=== PATIENT | male | born 1950 | race Caucasian/White ===

== ENCOUNTER 2017-06-27 12:03 | Day surgery (SDC) | payer OTHER, MEDICARE ==
[~2017-06-27 12:03] MED LIST: oxyCODONE HCL 10 MG SUSTAINED ACTING TABLET PO STA
[2017-06-27] MEDS ORDERED: oxyCODONE HCL 10 MG SUSTAINED ACTING TABLET ONE (12:28)
[2017-06-27] MEDS ORDERED: MIDAZOLAM HCL 2 MG/2 ML SINGLE DOSE VIAL ONE ×3 (13:15→14:19)
[2017-06-27] MEDS ORDERED: LIDOCAINE HCL 1%, 10 MG/ML (20ML VIAL) ONE (13:34)
[2017-06-27] MEDS ORDERED: BUPIVACAINE HCL/PF 0.5% (5MG/ML) 10 ML VIAL ONE (14:02)
--- NOTE | 2017-06-27 16:16 | HP ---
History & Physical Update - History History: No Change - Physical Physical: No Change - Assessment Assessment: No Change - Plan Plan: No Change
--- NOTE | 2017-06-27 16:17 | OP ---
Operative Note - Note: Operative Date: 06/27/17 Pre-Operative Diagnosis: Spinal stenosis with radiculopathy Operation: L4/5 bilateral laminectomy/discectomy Post-Operative Diagnosis: Same as Pre-op Surgeon: Aime Youssef [employer] Employee: David Mac Anesthesiologist/PSYCHODRAMATIST: Alli Troncoso Anesthesia: Spinal Specimens Removed: L4/5 disc Estimated Blood Loss (mls): 20 Fluid Volume Replaced (mls): 1,100 Operative Report Dictated: Yes
--- NOTE | 2017-06-27 16:18 | SURG ---
Surgery Tile Ditcher Note Tile Ditcher: David Mac PA-C Date of Service: 06/27/17 Diagnosis: Spinal stenosis with radiculopathy Procedure: L4/5 bilateral laminectomy/discectomy I was present for the entirety of the operative procedure. For further detail, please refer to operative report. Visit type - Case Type Case Type: Scheduled Admission - New patient This patient is new to me today: Yes Date on this admission: 06/27/17
[2017-06-27] MEDS ORDERED: ONDANSETRON 4 MG/2 ML VIAL IVPUSH PRN (16:21)
[2017-06-27] MEDS ORDERED: oxyCODONE HCL 5 MG TABLET PO PRN ×2 (16:21)
[2017-06-27] MEDS ORDERED: PROMETHAZINE HCL 25 MG/1 ML VIAL IVPUSH PRN (16:21)
[2017-06-27] MEDS ORDERED: LACTATED RINGERS SOLUTION 1,000 ML IV SCH (16:30)
[2017-06-27] MEDS ORDERED: oxyCODONE HCL 5 MG TABLET ONE (17:40)
[2017-06-27 18:04] VITALS: BP 105/65; PULSE 84; TEMP 98
--- NOTE | 2017-06-27 21:27 | OP ---
DATE OF OPERATION: 06/27/2017 PREOPERATIVE DIAGNOSIS: Spinal stenosis at L4-5, L5-S1. POSTOPERATIVE DIAGNOSIS: Spinal stenosis at L4-5, L5-S1. PROCEDURE PERFORMED: Laminectomy of L4-5, L5-S1. SURGEON: Aime Youssef MD ENVELOPE ADJUSTER: VERA Hamilton ESTIMATED BLOOD LOSS: 50 mL INTRAVENOUS FLUIDS: Per Anesthesia. ANESTHESIA: Spinal. COMPLICATIONS: None. DISPOSITION: Patient brought to the PACU in stable condition. INDICATION FOR SURGERY: The patient is a 67-year-old gentleman who has been suffering from pain from his back down his leg. X-rays and MRI were completed which noted that he had spinal stenosis at L4-5 and L5-S1. He had gone through an exhaustive course of treatment for this, which included medications, physical therapy as well as injections. Unfortunately, his pain continued to persist despite all this. At this point, risks, benefits, and alternatives were discussed, and the patient consented to surgery. DESCRIPTION OF PROCEDURE: Patient was brought to the operating room by the Anesthesia staff. After appropriate patient identification was performed, spinal anesthesia was given. He was placed prone onto the OR table with all layers of bony prominences well padded. At this time, 2 needles were placed into his back to yvonne off the L4 and S1 segments. X-rays were taken to confirm this as correct. The needles were removed, and 10 mL of lidocaine with epinephrine were injected into his back at this time. His back was prepped and draped in a sterile manner. At this point, timeout was completed. An incision was made from the top of L4 down to the bottom of S1. Dissection was carried down to the fascia. The fascia was split open at this time. Appropriate retractors were then placed in, and a spinal needle was placed onto the L4 lamina to yvonne off the L4-5 level. An x-ray was taken to confirm this as correct. The needle was removed, and the microscope was brought in. At this point, the interspinous ligament at L4-5 and L5-S1 was removed. The spinous process of L5 was removed. A complete decompression was performed by removing the bone and flavum; such that, by the end of the procedure, the L5 and S1 nerve roots appeared to be well decompressed. All bleeding was well controlled at this time. Steroid was placed over the nerve root. FloSeal was placed over that. The fascia was closed with a No. 1 Vicryl suture. The subcutaneous tissues were closed with 2-0 Vicryl suture. Skin was closed with 3-0 Monocryl suture. Dermabond was applied. Steri-Strips were applied. A sterile dressing was applied. Patient was placed supine on the OR bed and brought to the PACU in stable condition. Faheem WIN/[id number]
--- NOTE | 2017-06-29 15:43 | PATH ---
Surgical Pathology Report Patient Name: JOSE LUIS ENRIQUE [facility]. Rec. #: [id number] /Age/Gender: 1950 (Age: 67) / M Account: [id number] Location: [facility] Taken: 06/27/2017 Received: 06/27/2017 Reported: 06/29/2017 Physicians: Aime Youssef M.D. Specimen(s) Received L4-5 DISC Clinical History Spinal stenosis Final Diagnosis L4-5 DISC, LAMINECTOMY: CARTILAGE WITH DEGENERATIVE CHANGES. Electronically Signed Trudy Washington M.D. Gross Description Received in formalin labeled "L4-5 disc," is a 0.8 x 0.6 x 0.2 cm aggregate of cloud fragments of fibrocartilaginous tissue. The specimen is submitted in toto in one cassette. 06/28/201706/28/2017
== END 2017-06-27 18:35 | disposition home or self-care (01) ==
LOC: FASU 12:03
PROVIDERS: ATTEND Orthopaedic Surgery Orthopaedic Surgery of the Spine
PROC: 01NB0ZZ Release Lumbar Nerve, Open Approach (ICD-10-PCS; principal; 2017-06-27 14:33)
DX: M48.061 Spinal stenosis, lumbar region without neurogenic claudication (principal); M48.07 Spinal stenosis, lumbosacral region
CPT/HCPCS: 72100-TC; 88304-TC; 94760